=== PATIENT | male | born 1960 | race Caucasian/White ===

== ENCOUNTER 2017-06-29 05:13 | Day surgery (SDC) | payer OTHER ==
[~2017-06-29] VITALS: Ht 193 cm; Wt 77.1 kg
[~2017-06-29 05:13] MED LIST: ACET500CAP PO; NORCO1 TA1 PO; NORCO1 TA2 PO; PERCOCET1 TA4 PO; PR25 PO; V2 PO
== END 2017-06-29 23:59 | disposition home or self-care (01) ==
LOC: SDC 05:13
PROVIDERS: Orthopaedic Surgery
PROC: 3E0R3BZ Introduction of Anesthetic Agent into Spinal Canal, Percutaneous Approach (ICD-10-PCS; 2017-06-29)
PROC: B01B1ZZ Fluoroscopy of Spinal Cord using Low Osmolar Contrast (ICD-10-PCS; 2017-06-29)
PROC: 3E0R33Z Introduction of Anti-inflammatory into Spinal Canal, Percutaneous Approach (ICD-10-PCS; principal; 2017-06-29 07:00)
DX: M54.16 Radiculopathy, lumbar region (principal); Z87.891 Personal history of nicotine dependence; Z96.651 Presence of right artificial knee joint; Z88.5 Allergy status to narcotic agent; Z88.6 Allergy status to analgesic agent; Z98.1 Arthrodesis status; Z98.890 Other specified postprocedural states
CPT/HCPCS: J1040; J2250; J3010; Q9967